=== PATIENT | male | born 1945 | race African-American/Black ===

== ENCOUNTER 2022-04-30 06:14 | Inpatient (IN) | payer MEDICARE ==
[~2022-04-30] VITALS: Ht 172.7 cm; Wt 72.3 kg
[~2022-04-30 06:14] MED LIST: DOCU-150 PO; TAMS0.4C31 PO; TRAM50TA3 PO
[2022-04-30] MEDS ORDERED: CARV6.2548 PO (08:08)
[2022-04-30] MEDS ORDERED: ASPI-1406 PO (08:08)
[2022-04-30] MEDS ORDERED: SACU1TAB7 PO (08:08)
[2022-04-30] MEDS ORDERED: SITA100T11 PO (08:08)
[2022-04-30] MEDS ORDERED: FURO40TA5 PO (08:08)
[2022-04-30] MEDS ORDERED: LIP40 PO (08:08)
[2022-04-30] MEDS ORDERED: SPIR25TA PO (08:08)
[2022-04-30] MEDS ORDERED: LIDOCAINE HCL 1% 20ML VIAL (Pyxis) INJ ONE (08:26)
[2022-04-30] MEDS ORDERED: FENTANYL CITRATE/PF 50MCG/ML 2ML VIAL ONE (08:26)
[2022-04-30] MEDS ORDERED: MIDAZOLAM HCL 2 MG/2 ML VIAL ONE (08:26)
[2022-04-30] MEDS ORDERED: HEPARIN 1000 UNITS/ML 10ML ONE (08:26)
[2022-04-30] MEDS ORDERED: IODIXANOL 320MG/ML 100 ML BOTTLE IV ONE (08:26)
[2022-04-30] MEDS ORDERED: ASPIRIN 325MG EC TABLET PO ONE (10:10)
[2022-04-30] MEDS ORDERED: CLOPIDOGREL 75MG TABLET ONE (10:11)
[2022-04-30] MEDS ORDERED: ATROPINE SULFATE 1MG/10ML SYR IV PRN (10:15)
[2022-04-30 10:45] VITALS: BP 167/88
[2022-04-30] MEDS: ACETAMINOPHEN 325MG TABLET PO PRN (11:01)
[2022-04-30 12:00] VITALS: BP 179/71
[2022-04-30] MEDS ORDERED: HYDRALAZINE 20MG/ML VIAL IV NR (13:45)
[2022-04-30] MEDS ORDERED: ZOLPIDEM TARTRATE 5MG TABLET PO PRN (14:00)
[2022-04-30] MEDS ORDERED: NALOXONE HCL 0.4MG/ML VIAL IV PRN (14:00)
[2022-04-30] MEDS ORDERED: HYDROCODONE/ACETAMINOPHEN 5/325MG TABLET PO NR (14:00)
[2022-04-30] MEDS: ONDANSETRON HCL 4MG/2ML INJ IV PRN (14:38)
[2022-04-30 16:00] VITALS: BP 184/71
[2022-04-30] MEDS ORDERED: ENALAPRIL 1.25MG/ML VIAL 1ML IV PRN (17:30)
[2022-04-30] MEDS ORDERED: ENALAPRIL 2.5MG/2ML VIAL 2ML IV SCH (18:00)
[2022-04-30 20:00] VITALS: BP 101/93
[2022-04-30] MEDS: CARVEDILOL 6.25 MG TABLET PO SCH (22:04)
[2022-05-01] VITALS: BP 129/63
[2022-05-01 04:00] VITALS: BP 164/46
[2022-05-01 06:23] LABS: BASOPHILS % 0.1 % (0.0-2.0); EOSINOPHILS % 0.7 % (0.0-5.0); HEMATOCRIT. 32.3 % (42.0-52.0); HEMOGLOBIN. 10.7 g/dL (14.0-18.0); MEAN CORPUSCULAR HEMOGLOBIN 25.6 pg (28.0-32.0); MEAN CORPUSCULAR VOLUME 77.6 fL (80.0-94.0); MEAN PLATELET VOLUME 7.7 fl (7.4-10.4); MONOCYTES % 8.1 % (2.0-8.0); NEUTROPHILS % 77.1 % (40.0-76.0); PLATELET 210 x1000/uL (130-400); RED BLOOD CELL COUNT 4.16 mill/uL (4.7-6.1); RED CELL DISTRIBUTION WIDTH 17.8 % (11.6-14.6)
[2022-05-01 08:00] VITALS: BP 148/68
[2022-05-01] MEDS: ACETAMINOPHEN 325MG TABLET PO PRN (08:32)
[2022-05-01] MEDS: ONDANSETRON HCL 4MG/2ML INJ IV PRN (08:45)
[2022-05-01] MEDS ORDERED: ASPIRIN 325MG TABLET PO SCH (09:00)
[2022-05-01] MEDS: ASPIRIN 81MG TABLET PO SCH (10:15)
[2022-05-01] MEDS: CLOPIDOGREL 75MG TABLET PO SCH (10:15)
[2022-05-01] MEDS: CARVEDILOL 6.25 MG TABLET PO SCH ×2 (10:16→22:04)
[2022-05-01] MEDS: SODIUM CHLORIDE 0.45% 1,000 ML IV SCH (10:30)
[2022-05-01] MEDS ORDERED: PANTOPRAZOLE 40MG DR TABLET PO NR (10:30)
[2022-05-01 12:00] VITALS: BP 126/72
[2022-05-01 16:00] VITALS: BP 146/77
[2022-05-01 20:00] VITALS: BP 140/93
[2022-05-01] MEDS: HYDROCODONE/ACETAMINOPHEN 5/325MG TABLET PO PRN (22:05)
[2022-05-02] VITALS: BP 99/50
[2022-05-02 04:00] VITALS: BP 154/78
[2022-05-02] MEDS: SODIUM CHLORIDE 0.45% 1,000 ML IV SCH (04:15)
[2022-05-02] MEDS: PANTOPRAZOLE 40MG DR TABLET PO SCH (06:29)
[2022-05-02 08:00] VITALS: BP 160/72
[2022-05-02] MEDS: ASPIRIN 81MG TABLET PO SCH (08:34)
[2022-05-02] MEDS: CLOPIDOGREL 75MG TABLET PO SCH (08:35)
[2022-05-02] MEDS: CARVEDILOL 6.25 MG TABLET PO SCH ×2 (08:35→21:00)
[2022-05-02 12:00] VITALS: BP 121/84
[2022-05-02] MEDS: ACETAMINOPHEN 325MG TABLET PO PRN ×2 (13:19→20:59)
[2022-05-02 16:00] VITALS: BP 145/80
[2022-05-02 20:00] VITALS: BP 135/55
[2022-05-03] VITALS: BP 160/68
[2022-05-03] MEDS: SODIUM CHLORIDE 0.45% 1,000 ML IV SCH ×2 (00:19→22:07)
[2022-05-03] MEDS: HYDROCODONE/ACETAMINOPHEN 5/325MG TABLET PO PRN ×2 (02:39→20:16)
[2022-05-03 04:00] VITALS: BP 136/74
[2022-05-03] MEDS: PANTOPRAZOLE 40MG DR TABLET PO SCH (06:48)
[2022-05-03 08:00] VITALS: BP 120/81
[2022-05-03] MEDS: CLOPIDOGREL 75MG TABLET PO SCH (08:54)
[2022-05-03] MEDS: ASPIRIN 81MG TABLET PO SCH (08:55)
[2022-05-03] MEDS: CARVEDILOL 6.25 MG TABLET PO SCH ×2 (08:55→20:15)
[2022-05-03 12:00] VITALS: BP 146/78
[2022-05-03 16:00] VITALS: BP 157/77
[2022-05-03 20:00] VITALS: BP 158/84
[2022-05-04] VITALS (7 sets, daily range): BP systolic 141–157; BP diastolic 65–82
[2022-05-04] MEDS: HYDROCODONE/ACETAMINOPHEN 5/325MG TABLET PO PRN ×3 (03:47→16:03)
[2022-05-04] MEDS: HYDRALAZINE 20MG/ML VIAL IV PRN ×2 (03:52→17:31)
[2022-05-04] MEDS ORDERED: FAMOTIDINE 20MG TABLET PO SCH (06:50)
[2022-05-04] MEDS: CLOPIDOGREL 75MG TABLET PO SCH (08:32)
[2022-05-04] MEDS: CARVEDILOL 6.25 MG TABLET PO SCH (08:32)
[2022-05-04] MEDS: ASPIRIN 81MG TABLET PO SCH (08:32)
[2022-05-04 12:28] LABS: BASOPHILS % 0.2 % (0.0-2.0); EOSINOPHILS % 3.5 % (0.0-5.0); HEMATOCRIT. 32.3 % (42.0-52.0); HEMOGLOBIN. 10.4 g/dL (14.0-18.0); LYMPHOCYTES % 19.8 % (20.0-50.0); MEAN CORPUSCULAR HEMOGLOBIN 25.3 pg (28.0-32.0); MEAN CORPUSCULAR VOLUME 78.8 fL (80.0-94.0); MEAN PLATELET VOLUME 7.3 fl (7.4-10.4); MONOCYTES % 8.5 % (2.0-8.0); PLATELET 203 x1000/uL (130-400); RED CELL DISTRIBUTION WIDTH 18.3 % (11.6-14.6)
[2022-05-04] MEDS: SODIUM CHLORIDE 0.45% 1,000 ML IV SCH (16:03)
[2022-05-13] MEDS ORDERED: FAMO-135 PO (13:41)
[2022-05-13] MEDS ORDERED: CLON0.2T PO (13:43)
[2022-05-13] MEDS ORDERED: CLOP-31 PO (13:43)
== END 2022-05-04 18:20 | DRG 253 ==
LOC: CCL 06:14 → 3WST 10:50
PROVIDERS: ADMIT Specialist; ATTEND Specialist
PROC: 047J3DZ Dilation of Left External Iliac Artery with Intraluminal Device, Percutaneous Approach (ICD-10-PCS; principal; 2022-04-30)
PROC: 047H3DZ Dilation of Right External Iliac Artery with Intraluminal Device, Percutaneous Approach (ICD-10-PCS; 2022-04-30)
PROC: 047M34Z Dilation of Right Popliteal Artery with Drug-eluting Intraluminal Device, Percutaneous Approach (ICD-10-PCS; 2022-04-30)
PROC: B41GYZZ Fluoroscopy of Left Lower Extremity Arteries using Other Contrast (ICD-10-PCS; 2022-04-30)
PROC: B41FYZZ Fluoroscopy of Right Lower Extremity Arteries using Other Contrast (ICD-10-PCS; 2022-04-30)
DX: E11.51 Type 2 diabetes mellitus with diabetic peripheral angiopathy without gangrene (principal); E44.0 Moderate protein-calorie malnutrition; I42.9 Cardiomyopathy, unspecified; I13.0 Hypertensive heart and chronic kidney disease with heart failure and stage 1 through stage 4 chronic kidney disease, or unspecified chronic kidney disease; N17.9 Acute kidney failure, unspecified; I70.8 Atherosclerosis of other arteries; I70.201 Unspecified atherosclerosis of native arteries of extremities, right leg; I65.23 Occlusion and stenosis of bilateral carotid arteries; I34.0 Nonrheumatic mitral (valve) insufficiency; I50.9 Heart failure, unspecified; E11.22 Type 2 diabetes mellitus with diabetic chronic kidney disease; N18.9 Chronic kidney disease, unspecified; Z20.822 Contact with and (suspected) exposure to COVID-19; E88.09 Other disorders of plasma-protein metabolism, not elsewhere classified; E86.0 Dehydration; D63.8 Anemia in other chronic diseases classified elsewhere; Z68.24 Body mass index [BMI] 24.0-24.9, adult; Z95.5 Presence of coronary angioplasty implant and graft; Z79.02 Long term (current) use of antithrombotics/antiplatelets; Z79.84 Long term (current) use of oral hypoglycemic drugs; Z87.891 Personal history of nicotine dependence; Z86.73 Personal history of transient ischemic attack (TIA), and cerebral infarction without residual deficits; Z82.49 Family history of ischemic heart disease and other diseases of the circulatory system; Z79.899 Other long term (current) drug therapy; Z79.82 Long term (current) use of aspirin
CPT/HCPCS: 36415; 37221; 37223; 37230; 75716; 80048; 85025; 85347; 87426; 97162; C1725; C1760; C1769; C1874; C1876; C1887; C1893; C1894; J0360; J1644; J2250; J2405; J3010; J3490; Q9967